=== PATIENT | female | born 1980 | race Caucasian/White ===

== ENCOUNTER 2019-07-02 18:25 | Emergency (ER) | payer OTHER ==
[~2019-07-02] VITALS: Ht 157.5 cm; Wt 55.0 kg
[2019-07-02 19:00] VITALS: BP 102/50
[2019-07-02 19:23] LABS: BASO # 0.1 10^3/uL (0.0-0.2); BASO % 0.4 % (0.0-1.0); EOS # 1.2 10^3/uL (0.0-0.50); EOS % 7.4 % (0.0-3.0); HEMATOCRIT 37.3 % (36.0-47.0); HEMOGLOBIN 12.2 g/dl (12.0-15.5); LYMPH # 2.4 10^3/uL (1.5-4.5); LYMPH % 14.7 % (24.0-44.0); MEAN CORPUSCULAR HEMOGLOBIN 29.3 pg (27.0-33.0); MEAN CORPUSCULAR HGB CONC 32.7 g/dl (32.0-36.5); MEAN CORPUSCULAR VOLUME 89.4 fl (80.0-96.0); MONO # 1.2 10^3/uL (0.0-0.8); MONO % 7.4 % (0.0-5.0); NEUTROPHILS # 11.4 10^3/uL (1.8-7.7); NEUTROPHILS % 69.7 % (36.0-66.0); PLATELET COUNT, AUTOMATED 349 10^3/uL (150-450); RED BLOOD COUNT 4.17 10^6/uL (4.00-5.40); WHITE BLOOD COUNT 16.4 10^3/uL (4.0-10.0)
[2019-07-02 19:45] LABS: INR 1.01
[2019-07-02] MEDS ORDERED: dexameTHASONE 20 MG/5 ML VIAL (J1100) IV ONE (19:45)
[2019-07-02] MEDS ORDERED: ADACEL/BOOSTRIX VACCINE (DIPHTH/PERTUSS/ACELL/TETANUS)0.5ML SYR (90715) IM ONE (19:45)
[2019-07-02 19:51] LABS: ALBUMIN 3.3 GM/DL (3.2-5.2); ALT/SGPT 14 U/L (12-78); BILIRUBIN,DIRECT 0.1 MG/DL (0.0-0.2); BILIRUBIN,TOTAL 0.3 MG/DL (0.2-1.0); BLOOD UREA NITROGEN 6 MG/DL (7-18); CARBON DIOXIDE LEVEL 29 MEQ/L (21-32); CHLORIDE LEVEL 107 MEQ/L (98-107); CK-MB VALUE MASS 1.6 NG/ML (<3.6); CPK CREATINE PHOSPHOKINASE 108 U/L (26-192); CREATININE FOR GFR 0.68 MG/DL (0.55-1.30); GLOMERULAR FILTRATION RATE > 60.0 (>58); GLUCOSE, FASTING 82 MG/DL (70-100); MB/CK RELATIVE INDEX 1.48 (< OR =4); NT-PRO BNP 85 PG/ML (<125); POTASSIUM SERUM 3.8 MEQ/L (3.5-5.1); SODIUM LEVEL 142 MEQ/L (136-145); THYROID STIMULATING HORMONE 0.423 uIU/ML (0.358-3.740); TROPONIN I < 0.02 NG/ML (< 0.10)
[2019-07-02] MEDS ORDERED: DOXYCYCLINE HYCLATE 100 MG TAB PO ONE (20:00)
[2019-07-02] MEDS ORDERED: DOXY-350 PO (20:11)
[2019-07-02] MEDS ORDERED: PRED20TA PO (20:11)
[2019-07-02] MEDS ORDERED: PROV108A INH (20:11)
--- NOTE | 2019-07-03 07:08 | ECGEPIP ---
[facility] - ED Test Date: 2019-07-02 Pat Name: ОЛЬГА JACKSON Department: Room: - Gender: Female [employer]er Mechanic: HEIDE : 1980 Requested By: Karie Awan Order Number: [id number] Reading MD: Daryl Orellana Measurements Intervals [place] Rate: 90 P: 23 [place]: 119 QRS: 70 QRSD: 86 T: 50 QT: 354 QTc: 435 Interpretive Statements SINUS RHYTHM WITH SHORT [place] INTERVAL NO PRIORS FOR COMPARISON Electronically Signed on 07-03-2019 7:07:56 EDT by Daryl Orellana
--- NOTE | 2019-07-03 08:58 | REP ---
Portable chest x-ray: Sitting AP view. History: Dyspnea and cough. Findings: The lungs are symmetrically aerated and clear. Pleural angles are sharp. Heart size is normal. Left hemidiaphragm is slightly elevated. Pulmonary vasculature is not increased. Impression: Slightly elevated left hemidiaphragm. Otherwise no acute disease. Electronically Signed by Freddy Nick MD 07/03/2019 08:49 A
== END 2019-07-02 20:24 | disposition left against medical advice (07) ==
LOC: EDBD 18:25 → M ED 18:25
DX: J45.909 Unspecified asthma, uncomplicated (principal); G89.29 Other chronic pain; Z72.0 Tobacco use; Z88.0 Allergy status to penicillin
CPT/HCPCS: 71045; 80048; 80076; 82550; 82553; 83605; 83880; 84443; 84484; 84702; 85025; 85610; 87040; 90471; 93005; 93041; 94640; 94760; 96374; 99284; G0463